=== PATIENT | female | born 1995 | race Caucasian/White ===

== ENCOUNTER → 2020-09-23 07:43 | Outpatient (CLI) | payer OTHER, BC, SELFPAY ==
--- NOTE | 2020-09-23 | DI.US.S_ITS ---
PROCEDURE: US PELVIC COMPLETE INDICATIONS: PAIN IN PELVIS TECHNIQUE: Real-time scanning was performed of the pelvic organs, with image documentation. Additional endovaginal scanning was necessary due to incomplete visualization of the adnexal and endometrial structures by transabdominal scanning. COMPARISON: None. FINDINGS: Uterus: Uterus is normal in size at 6.3 x 5.1 x 3.3 cm. The endometrium measures 7 mm in combined thickness. Ovaries: The right ovary measures 4.4 x 2.7 x 2.8 cm. On the right, there is a paraovarian cyst seen that measures up to 1.5 cm. The left ovary measures 4.7 x 2.6 x 1.9 cm. The left ovary demonstrates 2 complex cysts. One measures 2.4 x 2.1 x 1.6 cm and demonstrates peripheral vascularity. A 2nd is seen that measures up to 12 mm. Other: A mild amount of free pelvic fluid is seen, which is considered to be within physiologic limits. IMPRESSION: 2 complex cysts can be seen involving the left ovary, 1 of which may represent a hemorrhagic cyst. If it would be clinically appropriate, a followup pelvic ultrasound could be considered in 6 weeks to assure resolution/ improvement. Dictated by: Filiberto Ruelas M.D. on 09/23/2020 at 12:00 Approved by: Filiberto Ruelas M.D. on 09/23/2020 at 12:01
== END ==
PROVIDERS: PCP Obstetrics & Gynecology; Referring Provider Obstetrics & Gynecology; Visit Provider Obstetrics & Gynecology
DX: R10.2 Pelvic and perineal pain (principal); N83.292 Other ovarian cyst, left side
CPT/HCPCS: 76830; 76856

== ENCOUNTER 2020-11-04 06:26 | Day surgery (SDC) | payer OTHER, BC, SELFPAY ==
[2020-11-01 13:03] VITALS: BMI 17.9
[2020-11-04] VITALS (9 sets, daily range): BP systolic 88–116; BP diastolic 52–75; PULSE 67–88; RESP 10–20; TEMP 36.7–36.9; O2SAT 65–100; BMI 18.4
--- NOTE | 2020-11-04 | PATH_ITS ---
[facility] Accession Number: [id number] . 01 Material submitted: . fallopian tube - ENDOMETRIOSIS OF LEFT FALLOPIAN TUBE . 02 Diagnosis: Endometriosis of the Left Fallopian Tube: Patchy glandular elements and hemorrhage, consistesnt with endometriosis, in the appropriate clinical setting. Additional levels through the block are non-contributory. V 11/09/2020 1342 Local . 02 Electronically signed: . Bhavani Yepez MD, Pathologist NPI- [id number] . 01 Gross description: . The specimen is received in formalin, labeled left fallopian tube, and consists of a 1.2 x 0.4 x 0.3 cm, pink-purple cyst and a 0.5 x 0.4 x 0.3 cm cross-pink fragment of soft tissue. The specimen is entirely submitted in cassette A1. ([id number]) /[facility] 11/05/2020 1605 Local . 02 Pathologist provided ICD-10: R10.2, N83.209, N94.6 . 02 CPT . 948392 Performed at: 01 [facility] [address], [place], [place] [id number] MD Gurwinder Dewey MD Phone: [phone] Performed at: 02 [facility] [address] [place], [place] [id number] MD Katia Galeana MD Phone: [phone]
[2020-11-04] MEDS: LACTATED RINGERS 1,000 ML 42 ML IV ×2 (07:17→09:43)
--- NOTE | 2020-11-04 07:21 | P.HPOB_ITS ---
History of Present Illness History of Present Illness Reason for admission: pelvic pain Narrative: Ina is a 25-year-old female who presents today in referral for evaluation of dysmenorrhea and pelvic pain. she has experienced significant dysmenorrhea since onset of menses at approximately age 11. her dysmenorrhea resulted in missed school and he remembers waking up from her sleep due to pelvic pain with her periods she has been seen both by her primary care physician and a ski binding fitter and repairer in the past who recommended initiation of oral contraceptives but the patient has been reluctant due to concern that this would not address the underlying issue of her pain and she was also concerned about exhaustion as hormone therapy.? Her periods are irregular and extremely painful with a persistent day-to-day pain in the pelvis involving over the last few years.? She occasionally experiences deep dyspareunia.? She and her partner use condoms for contraception.? She was on oral contraceptives briefly from 2018- 2019 and during that time she experience less day-to-day pain and pain with her periods but had a significant mood changes and skin discomfort as well as breast sensitivity with the pill that she was on.? She expresses a desire for definitive diagnosis and treatment if at all possible as this is disruptive and detrimental to her quality of life.? Recent pelvic ultrasound shows normal uterus with endometrial stripe measurement of 7 mm.? The right ovary measures 4.4 x 2.7 x 2.8 cm.? There is a paraovarian cyst next to the right ovary measures up to 1.5 cm.? The left ovary measures 4.7 x 2.6 x 1.9 cm and demonstrates 2 complex cysts 1 of which measures 2.4 x 2.1 x 1.6 and has peripheral vascularity.? The 2nd is seen and is a simple cyst with diameter of 12 mm.? After consideration of all options, the patient has decided to proceed with diagnostic laparoscopy and possible left ovarian cystectomy which is scheduled [facility] the [facility] on 11/04/2020.? She presents today for her scheduled procedure. [facility] Medical History Chronic pelvic pain in female Primary dysmenorrhea Social History household members: spouse Smoking Status: Never smoker Meds Home Medications and Allergies Home Medications Medication Instructions Recorded Confirmed Type No Known Home Medications 11/03/20 11/04/20 History Allergies Allergy/AdvReac Type Severity Reaction Status Date / Time ibuprofen Allergy Severe Hives Verified 11/03/20 11:27 Penicillins Allergy Intermediate Hives Verified 11/03/20 11:28 Sulfa (Sulfonamide Allergy Intermediate migrane, Verified 11/03/20 11:28 Antibiotics) hives, dizzy Review of Systems Review of Systems Narrative: Problem-specific ROS positives included in HPI Exam Vital Signs (past 8 hours): - 11/04/20 06:54 Temperature 98.4 F Pulse Rate 81 Respiratory Rate 20 Blood Pressure 116/75 Pulse Oximetry 100 Oxygen Delivery Method Room Air Const General: cooperative and healthy appearing Nutritional Appearance: average body habitus Orientation: alert and oriented x3 HENMT Head: atraumatic and abrasion Ears: hearing grossly normal bilaterally Nose: external nose normal Face and sinus: normal facial exam Mouth: oral mucosae normal Teeth and gingiva: dentition normal Throat: posterior oropharynx normal Eyes General: appearance normal, both eyes and all related structures Conjunctivae: conjunctivae normal Sclera: sclerae normal EOM: EOM intact bilaterally Neck Neck: normal visual inspection, full ROM and No lymphadenopathy Thyroid: thyroid normal Resp Effort & Inspection: normal respiratory effort and able to speak in complete sentences Auscultation: clear to auscultation bilaterally Cardio Rate: regular rate Rhythm: regular rhythm Heart Sounds: S1 normal, S2 normal and no murmurs GI Inspection: normal to inspection Palpation: soft and no hepatosplenomegaly External Female Exam: normal external appearance Speculum Exam - Vagina: normal appearance of the vagina and normal vaginal discharge Speculum Exam - Cervix: normal appearance of the cervix, closed and nontender Bimanual Exam- Vagina & Uterus: normal bimanual exam, No tender and tender (Mild) Bimanual Exam- Adnexa, other: normal adnexae and tender (Mild, bilateral) Back/Spine/Pelvis Back: normal to inspection Skin General: no rashes or lesions noted Neuro General: patient alert, patient awake and patient oriented x3 Extrem General: normal to inspection and full ROM Psych Appearance: grossly normal Mental Status: mental status grossly normal Speech and Movement: speech and movement normal Mood: congruent mood Affect: normal affect Attitude: cooperative Thought Process: normal Thought Content: normal Judgment: judgment good Assessment & Plan Assessment and plan (1) Cyst of left ovary: Status: Acute (2) Chronic pelvic pain in female: Status: Acute (3) Primary dysmenorrhea: Status: Acute Plan: Patient counseled regarding alternatives, risks, benefits, and potential complications associated with diagnostic laparoscopy and possible left ovarian cystectomy.? With full knowledge and understanding of the above, a written consent was executed, signed, and witnessed this date. COVID-19 COVID-19 status: Negative Result date/Date tested (Pos, Neg/Pending): 11/03/20 Time Spent With Patient Time with patient: less than 30 minutes Critical Care time: I spent a total of [] minutes of critical care time on this patient's care today; this time is exclusive of procedural time.
--- NOTE | 2020-11-04 08:15 | SUR.OPER ---
Lithotomy on padded OR bed, head on pillow, arms secured padded with gel pads and tucked at sides. Legs secured in padded yellow fins stirrups. Prior to OR, patients glasses placed in Hospital designated black glass case, patient ID label present and given to pre-op RN. patient voided in bathroom in pre-op area at 0745.
[2020-11-04] MEDS: BUPIVACAINE 0.5% (PF) VIAL 30 ML INJ (08:23)
[2020-11-04] MEDS: EPINEPHrine 1 MG/ML 0.15 MG SUBCUT (08:26)
--- NOTE | 2020-11-04 09:07 | PM.GYNOP.1 ---
Operative Date/Time/Diagnoses Date of procedure: 11/04/20 Time of procedure: 08:00 Pre-op diagnosis: Chronic pelvic pain Dysmenorrhea Left ovarian cyst Post-op diagnosis: other (Stage I pelvic endometriosis) Procedure & Clinicians Procedure: Procedures Operation Date: 11/04/20 07:45 Actual Procedure Side Surgeon lazaro RAIN Laparoscopy, Excision of Pelvic Endometriosis, and Fulguration of Pelvic Endometriosis Luis Tran MD Indications: Ina is a 25-year-old female who presents today in referral for evaluation of dysmenorrhea and pelvic pain. she has experienced significant dysmenorrhea since onset of menses at approximately age 11. her dysmenorrhea resulted in missed school and he remembers waking up from her sleep due to pelvic pain with her periods she has been seen both by her primary care physician and a linderman operator in the past who recommended initiation of oral contraceptives but the patient has been reluctant due to concern that this would not address the underlying issue of her pain and she was also concerned about exhaustion as hormone therapy. Her periods are irregular and extremely painful with a persistent day-to-day pain in the pelvis involving over the last few years. She occasionally experiences deep dyspareunia. She and her partner use condoms for contraception. She was on oral contraceptives briefly from [id number] and during that time she experience less day-to-day pain and pain with her periods but had a significant mood changes and skin discomfort as well as breast sensitivity with the pill that she was on. She expresses a desire for definitive diagnosis and treatment if at all possible as this is disruptive and detrimental to her quality of life. Recent pelvic ultrasound shows normal uterus with endometrial stripe measurement of 7 mm. The right ovary measures 4.4 x 2.7 x 2.8 cm. There is a paraovarian cyst next to the right ovary measures up to 1.5 cm. The left ovary measures 4.7 x 2.6 x 1.9 cm and demonstrates 2 complex cysts 1 of which measures 2.4 x 2.1 x 1.6 and has peripheral vascularity. The 2nd is seen and is a simple cyst with diameter of 12 mm. After consideration of all options, the patient has decided to proceed with diagnostic laparoscopy and possible left ovarian cystectomy which is scheduled for the [facility] on 11/04/2020. She presents today for her scheduled procedure. Surgeon: Luis Tran Anesthesia Type: General Operative Notes Findings: Upon initial inspection of the pelvis, a small to moderate amount of bloody fluid is noted in the pelvis. There is a deep endometrial implant within the lateral aspect of the broad ligament on the left side. There is a endometriotic implant involving the distal aspect of the fallopian tube on the left side. There are to follicular cysts within the substance of the left ovary but no other abnormalities of the ovary on the left are noted. There is no obvious endometrial implants in the ovarian fossa on the left. Posterior cul-de-sac in the anterior cul-de-sac are free of adhesions but there are several minute superficial endometriotic implants in the posterior cul-de-sac, all of which are medial to the uterus sacral ligaments. There is an early Masters window at the base of the uterus sacral ligament insertion on the right side. There is no peritoneal endometriosis visible in the right ovarian fossa. There are to hidatid cysts of Morgagni attached to the distal aspect of the tube on the right. The right ovary is normal but there is a superficial implant of endometriosis on the posterior aspect of the right ovary. The appendix is normal in appearance as is the liver edge and gallbladder. The remainder of the abdominal pelvic cavity is unremarkable to laparoscopic inspection. Closure Type: primary Specimen(s): other (Endometriosis, distal left fallopian tube) Estimated blood loss (mL): 5 Blood products transfused: none Procedure in detail: With the patient under satisfactory general endotracheal anesthesia in the modified dorsal lithotomy position, the abdomen perineum and vagina were prepped and draped in the usual fashion for laparoscopy. No uterine manipulator was inserted and the patient had voided immediately prior to coming to the OR therefore straight catheterization was not performed. A pre-surgical safety time-out was then taken in compliance with [facility] Main OR protocol. The umbilicus was then infiltrated with 0.25% Marcaine and a 1 cm vertical umbilical incision was made in the skin of the umbilicus. A Veress needle was used to insufflate the abdomen with carbon dioxide and a 5 mm port was placed through the incision. Proper placement of the port within the abdominal cavity was confirmed visually and a 2nd and 3rd port were inserted in the right and left mid quadrant both sides after infiltration of the skin and subcutaneous tissues with 0.25% Marcaine. Using a 3 puncture technique the pelvis and abdomen were thoroughly visualized. Attention was first turned to evacuation of the fluid bloody fluid in the posterior cul-de-sac. Careful inspection of all the peritoneal surfaces in the pelvis was carried out. The deep implant within the broad ligament on the left side was excised and fulgurated with a small through and through defect of the broad ligament noted at the conclusion of the excision. There was however no bleeding and no injury to any surrounding tissue or vessels in the broad ligament. The tube and ovary on the left were then carefully inspected and the area of endometriosis attached to the distal aspect of the tube on the left side was carefully excised using monopolar scissors and a PK device for judicious application of bipolar current. Hemostasis was excellent and the specimen obtained was submitted for pathologic evaluation. Attention was then turned to the right adnexa and the hydatid of Morgagni were coagulated with the PK device and excised. They were not submitted as pathologic specimens. The superficial implant on the posterior surface of the right ovary was then coagulated with monopolar current and completely fulgurated. The small areas of superficial endometriosis in the posterior cul-de-sac were all fulgurated with bipolar current and careful avoidance of all underlying structures was maintained at all times. After all areas of abnormality were either excised or fulgurated, the pelvis was irrigated thoroughly and reinspected for any additional abnormalities. There were no other abnormalities and inspection of the upper abdomen is similarly unremarkable. A point pneumoperitoneum was vented and the ports removed. The port incisions were then closed with 4-0 Monocryl using inverted interrupted sutures and skin glue was applied. Appropriate dressings were then applied the patient was awakened. She was then transferred to the PACU for a period of recovery having tolerated procedure well. Complications: none Post-operative Condition: stable Disposition: PACU Plan for aftercare: Routine postoperative care and discharged to home following recovery in the PACU
== END 2020-11-04 10:08 | disposition home or self-care (01) ==
PROVIDERS: PCP Obstetrics & Gynecology; Referring Provider Obstetrics & Gynecology; Visit Provider Obstetrics & Gynecology
PROC: (CPT 58662; principal; 2020-11-04 07:45)
DX: N80.2 Endometriosis of fallopian tube (principal); N83.292 Other ovarian cyst, left side; N80.8 Other endometriosis
CPT/HCPCS: 58662; 81025; J0171; J1100; J1885; J2250; J2405; J2704; J3010

== ENCOUNTER → 2021-05-03 10:21 | Outpatient (CLI) | payer BC, SELFPAY ==
[2021-05-03 12:05] LABS: HCG Quantitative /Beta subunit < 2.4 mIU/mL
== END ==
PROVIDERS: PCP Obstetrics & Gynecology; Referring Provider Obstetrics & Gynecology; Visit Provider Obstetrics & Gynecology
DX: O20.9 Hemorrhage in early pregnancy, unspecified (principal); Z32.01 Encounter for pregnancy test, result positive
CPT/HCPCS: 36415; 84702